=== PATIENT | female | born 1980 | race Caucasian/White ===

== ENCOUNTER 2021-07-22 16:43 | Emergency (ER) | payer OTHER ==
[~2021-07-22] VITALS: Ht 167.6 cm; Wt 54.4 kg
[2021-07-22 17:23] VITALS: BP 122/78
[2021-07-22] MEDS ORDERED: LORA10TA7 PO (20:12)
== END 2021-07-22 20:16 | disposition home or self-care (01) ==
LOC: ER 16:49
DX: J30.9 Allergic rhinitis, unspecified (principal); Z20.822 Contact with and (suspected) exposure to COVID-19
CPT/HCPCS: 87426; 99283; C9803

== ENCOUNTER 2023-08-28 10:05 | Emergency (ER) | payer OTHER ==
[~2023-08-28] VITALS: Ht 152.4 cm; Wt 54.4 kg
[~2023-08-28 10:05] MED LIST: LORA10TA7 PO
[2023-08-28 10:11] VITALS: BP 119/70; TEMP 98.3
[2023-08-28] MEDS ORDERED: CETI1TAB9 PO (10:17)
[2023-08-28 10:22] VITALS: O2SAT 99
== END 2023-08-28 10:24 | disposition home or self-care (01) ==
LOC: ER 10:09
DX: J06.9 Acute upper respiratory infection, unspecified (principal)

== ENCOUNTER 2025-01-17 09:25 | Emergency (ER) | payer OTHER ==
[~2025-01-17] VITALS: Ht 152.4 cm; Wt 56.7 kg
[~2025-01-17 09:25] MED LIST changes: +CETI1TAB9 PO
[2025-01-17 09:30] VITALS: BP 119/75; TEMP 99; O2SAT 97
[2025-01-17] MEDS ORDERED: PSEU60TA94 PO (09:51)
[2025-01-17] MEDS ORDERED: FLUT15.89 BNOSTRILS (09:51)
[2025-01-17] MEDS ORDERED: PSEUDOEPHEDRINE HCL 30 MG TABLET ONE (10:00)
[2025-01-17] MEDS: PSEUDOEPHEDRINE HCL 30 MG TABLET PO ONE (10:05)
== END 2025-01-17 10:05 | disposition home or self-care (01) ==
LOC: ER 09:28
DX: J30.9 Allergic rhinitis, unspecified (principal); H57.89 Other specified disorders of eye and adnexa

== ENCOUNTER 2025-02-04 09:32 | Emergency (ER) | payer OTHER ==
[~2025-02-04] VITALS: Ht 157.5 cm; Wt 59.0 kg
[~2025-02-04 09:32] MED LIST changes: +FLUT15.89 BNOSTRILS; +PSEU60TA94 PO
[2025-02-04 09:57] VITALS: TEMP 98.7
[2025-02-04] MEDS ORDERED: ACETAMINOPHEN 325 MG TABLET ONE (10:23)
[2025-02-04] MEDS ORDERED: cetrizine 10 MG TABLET ONE (10:24)
[2025-02-04] MEDS ORDERED: IBUPROFEN 600 MG TABLET ONE (10:24)
[2025-02-04] MEDS: cetrizine 10 MG TABLET PO ONE (10:28)
[2025-02-04] MEDS: ACETAMINOPHEN 325 MG TABLET PO ONE (10:28)
[2025-02-04] MEDS: IBUPROFEN 600 MG TABLET PO ONE (10:28)
[2025-02-04 11:35] VITALS: BP 119/82; O2SAT 99
== END 2025-02-04 11:27 | disposition home or self-care (01) ==
LOC: ER 09:42
DX: R51.9 Headache, unspecified (principal); R09.81 Nasal congestion; R09.89 Other specified symptoms and signs involving the circulatory and respiratory systems; R05.9 Cough, unspecified; Z20.822 Contact with and (suspected) exposure to COVID-19